=== PATIENT | female | born 1990 | race African-American/Black ===

== ENCOUNTER 2020-01-17 15:00 | Emergency (ER) | payer SELFPAY ==
[~2020-01-17] VITALS: Ht 160 cm; Wt 100.5 kg
[~2020-01-17 15:00] MED LIST: NAPR-683 PO; PREN1TAB58
[2020-01-17 15:18] VITALS: BP 128/77
[2020-01-17 15:30] LABS: BILIRUBIN,URINE NEGATIVE (NEG); CLARITY,URINE CLEAR; COLOR,URINE YELLOW; NITRITE,URINE NEGATIVE (NEG); PH,URINE 6.5 (<5.0-8.0); PROTEIN,URINE 30 mg/dL (NEG-TRACE)
[2020-01-17 16:00] LABS: BACTERIA,URINE 0 /HPF (0-FEW); SQUAMOUS EPITHELIAL CELL,UR MOD /LPF; WBC,URINE OCC /HPF (0-4)
[2020-01-17] MEDS ORDERED: IBUPROFEN 200 MG TABLET. PO ONE (16:15)
--- NOTE | 2020-01-17 16:17 | PHYS DOC ---
Past Medical History Past Medical History: No Pertinent History Additional Past Medical Histor: pt reports history of gestational diabetes Past Surgical History: , Tubal ligation Smoking Status: Never Smoker Alcohol Use: Rarely Drug Use: None General Adult EDM: Chief Complaint: VAGINAL BLEEDING HPI: HPI: Patient is a 29 year old female who presents with she is at work and began having vaginal bleeding that was like a period with a very small clot in the toilet when she went to the restroom. She states that her period ended 2 weeks ago. She states that she usually is on time and knows when her parents are coming but it scared her because she started bleeding again early. Patient states she does have slight menstrual cramping. She states that it feels like a period. Rates her pain a 3 out of 10. Review of Systems: Review of Systems: : Denies dysuria. Vaginal bleeding. [] Heart Score: Risk Factors: Risk Factors: DM, Current or recent (<one month) smoker, HTN, HLP, family history of CAD, obesity. Risk Scores: Score 0 - 3: 2.5% MACE over next 6 weeks - Discharge Home Score 4 - 6: 20.3% MACE over next 6 weeks - Admit for Clinical Observation Score 7 - 10: 72.7% MACE over next 6 weeks - Early Invasive Strategies Allergies: Allergies: Allergies Coded Allergies Type Severity Reaction Last Updated Verified No Known Drug Allergies 03/18/16 No Physical Exam: PE: Constitutional: Well developed, well nourished, no acute distress, non-toxic appearance. [] HENT: Normocephalic, atraumatic, bilateral external ears normal, oropharynx ginger st, no oral exudates, nose normal. [] Eyes: PERRLA, EOMI, conjunctiva normal, no discharge. [] Neck: Normal range of motion, no tenderness, supple, no stridor. [] Cardiovascular:Heart rate regular rhythm, no murmur [] Lungs & Thorax: Bilateral breath sounds clear to auscultation [] Abdomen: Bowel sounds normal, soft, no tenderness, no masses, no pulsatile masses. [] Skin: Warm, dry, no erythema, no rash. [] Back: No tenderness, no CVA tenderness. [] Extremities: No tenderness, no cyanosis, no clubbing, ROM intact, no edema. [] Neurologic: Alert and oriented X 3, normal motor function, normal sensory function, no focal deficits noted. [] Psychologic: Affect normal, judgement normal, mood normal. Normal physical exam [] Current Patient Data: Labs: Laboratory Tests Test 01/17/20 15:15 01/17/20 15:18 Urine Collection Type Unknown Urine Color Yellow Urine Clarity Clear Urine pH 6.5 (<5.0-8.0) Urine Specific [place] >=1.030 (1.000-1.030) Urine Protein 30 mg/dL (NEG-TRACE) Urine Glucose (UA) Negative mg/dL (NEG) Urine Ketones (Stick) Negative mg/dL (NEG) Urine Blood Large (NEG) Urine Nitrite Negative (NEG) Urine Bilirubin Negative (NEG) Urine Urobilinogen Dipstick 1.0 mg/dL (0.2 mg/dL) Urine Leukocyte Esterase Negative (NEG) Urine RBC 3-5 /HPF (0-2) Urine WBC Occ /HPF (0-4) Urine Squamous Epithelial Cells Mod /LPF Urine Bacteria 0 /HPF (0-FEW) Urine Mucus Slight /LPF POC Urine HCG, Qualitative Hcg negative (Negative) Vital Signs: Vital Signs Date Time Temp Pulse Resp B/P (MAP) Pulse Ox O2 Delivery O2 Flow Rate FiO2 01/17/20 15:18 98.5 72 18 128/77 (94) 99 Room Air 98.5 EKG: EKG: [] Radiology/Procedures: Radiology/Procedures: [] Course & Med Decision Making: Course & Med Decision Making Pertinent Labs and Imaging studies reviewed. (See chart for details) Alert and oriented. Speaks in full clear sentences. Denies any concerns for sexually transmitted disease, abnormal vaginal discharge or odor, nausea, v omiting, diarrhea, fever, dysuria, back pain, chest pain, shortness of air. She states she is bleeding like a normal period for her. Abdomen soft nontender. Ambulatory with a steady gait. Patient is told that I can do an ultrasound to make sure that there are no fibroids or ovarian cyst and that she has blood flow to her ovaries. Patient is refusing and states she does not think that she needs to have one. Patient states her understanding that I cannot fully diagnose her without the ultrasound. Patient states her understanding but she is refusing ultrasound and states she does not think she needs it. Patient is given ibuprofen for pain. Patient is discharged she can follow-up with her front desk admin. She denies taking any kind of controls. Her is negative. [] Jaun Disclaimer: Jaun Disclaimer: This electronic medical record was generated, in whole or in part, using a voice recognition dictation system. Departure Departure Impression: Primary Impression: Vaginal bleeding Disposition: HOME, SELF-CARE Condition: STABLE Referrals: NO PCP (PCP) GILLIAN NASSAR Jr, MD Patient Instructions: Dysmenorrhea, [id number] Additional Instructions: Follow-up with a front desk admin if needed. I have referred you to one if you do not have one. Take ibuprofen or Tylenol for your pain. DONTA MCKEON [employer] Jan 17, 2020 16:17
== END 2020-01-17 16:23 | disposition home or self-care (01) ==
LOC: ER 15:00
DX: N93.9 Abnormal uterine and vaginal bleeding, unspecified (principal); Z98.51 Tubal ligation status; Z98.890 Other specified postprocedural states
CPT/HCPCS: 81001; 81025; 99283